=== PATIENT | female | born 1995 | race Caucasian/White ===

== ENCOUNTER → 2018-10-02 | Outpatient (CLI) | payer BC | LOC: ZCOL.LAB 16:28 | DX: L02.211 Cutaneous abscess of abdominal wall (principal) ==

== ENCOUNTER → 2019-11-11 | Outpatient (CLI) | payer BC, OTHER ==
[~2019-11-11] VITALS: Ht 162.6 cm; Wt 65.9 kg
[2019-11-11 21:23] VITALS: BP 115/88; TEMP 98.5
[2019-11-12 00:46] VITALS: PULSE 54
== END ==
LOC: COL.LAB 18:55
DX: Z20.3 Contact with and (suspected) exposure to rabies (principal)

== ENCOUNTER 2019-11-25 18:20 | Outpatient (RCR) | payer BC ==
[2019-11-25 18:30] VITALS: BP 145/90; PULSE 67; TEMP 99.4
== END 2020-02-12 | disposition still patient (30) ==
LOC: COL.ER
DX: Z23 Encounter for immunization (principal); Z20.3 Contact with and (suspected) exposure to rabies